=== PATIENT | male | born 1985 | race Caucasian/White ===

== ENCOUNTER → 2016-12-12 | Outpatient (CLI) | payer BC ==
--- NOTE | 2016-12-12 09:17 | CT ---
EXAMINATION TYPE: CT sinus wo con DATE OF EXAM: 12/12/2016 8:34 AM COMPARISON: NONE HISTORY: Chronic Sinusitis CT DLP: 635.1 mGycm Automated exposure control for dose reduction was used. FINDINGS: Visualized intracranial structures are unremarkable. Soft tissue imaging appears normal. There is partial septation of the left maxillary sinus. There are 2 small retention cyst or polyps me asuring 1.3 and 0.8 cm respectively. The right infundibulum is patent. The left is not clearly visual ized. There is also a small 6.9 mm retention cyst or polyp involving the sphenoid sinus anteriorly. T here is some minimal mucoperiosteal thickening involving the anterior ethmoidal sinuses on the left. The mastoid air cells are clear. No bony destructive lesion is seen. IMPRESSION: 1. MULTIPLE SMALL RETENTION CYST OR POLYPS INVOLVING THE LEFT MAXILLARY AND SPHENOID SINUSES. 2. FAILURE TO VISUALIZE THE LEFT INFUNDIBULUM.
== END | disposition home or self-care (01) ==
LOC: RADCTMAIN 08:13
PROVIDERS: ATTEND Otolaryngology
DX: J32.9 Chronic sinusitis, unspecified (principal)
CPT/HCPCS: 70486

== ENCOUNTER 2017-08-14 07:19 | Day surgery (SDC) | payer BC ==
[2017-08-11 10:58] VITALS: BMI 28.7
[~2017-08-14 07:19] MED LIST: DEXAMETHASONE SOD PHOSPHATE 10 MG/ML 1 ML VIAL IV ONE; DEXAMETHASONE SOD PHOSPHATE 4 MG/ML 1 ML VIAL IV ONE; FAMOTIDINE 20 MG/2 ML VIAL IV ONE; HYDROmorphone 0.5 MG/0.5 ML SYRINGE IVP PRN; LACTATED RINGERS 1,000 ML IV SCH; MIDAZOLAM 2 MG/2 ML VIAL IV PRN; ONDANSETRON 4 MG/2 ML VIAL IVP ONE; ceFAZolin 2 GM in SODIUM CHLORIDE 0.9% 100 ML IVPB ONE
[2017-08-14] MEDS ORDERED: OXYMETAZOLINE 0.05% NASL SPRAY 1 SPRAY BOTTLE EA NOSTRIL ONE (07:42)
[2017-08-14] MEDS ORDERED: LIDOCAINE 1% 20 ML VIAL (10MG/ML) FOR IV START INTRADERMA ONE (08:01)
[2017-08-14] MEDS ORDERED: MIDAZOLAM 2 MG/2 ML VIAL ONE (08:52)
[2017-08-14] MEDS ORDERED: DEXAMETHASONE SOD PHOS (MDV) 100 MG/10 ML VIAL ONE (08:52)
[2017-08-14] MEDS ORDERED: MORPHINE SULFATE 10 MG/ML SYRINGE ONE (08:52)
[2017-08-14] MEDS ORDERED: fentaNYL (PF) 50 MCG/ML 2 ML AMP ONE (08:52)
[2017-08-14] MEDS ORDERED: PROPOFOL 10 MG/ML 20 ML VIAL IV ONE (08:52)
[2017-08-14] MEDS ORDERED: LIDOCAINE 1% INJ 10MG/ML (20 ML MDV) ONE (08:52)
[2017-08-14] MEDS ORDERED: SUCCINYLCHOLINE CHLORIDE 100 MG/5 ML SYR IV ONE (08:52)
[2017-08-14] MEDS ORDERED: EPINEPHrine 1 MG/ML (MDV) 30 ML VIAL TOPICAL ONE (09:21)
[2017-08-14] MEDS ORDERED: FLUORESCEIN STRIPS 1 MG STRIP MISCELLANE ONE (09:21)
[2017-08-14] MEDS ORDERED: LIDOCAINE 2%-EPI 1:100,000 20 ML VIAL SQ ONE ×2 (09:22)
[2017-08-14] MEDS ORDERED: BACITRACIN 500 UNIT/GM OINT 28.4 GM TUBE TOPICAL ONE (09:32)
[2017-08-14 10:35] VITALS: TEMP 98.8
--- NOTE | 2017-08-14 10:44 | P.OP ---
Date of Procedure: 08/14/17 Preoperative Diagnosis: Chronic sinusitis Deviated nasal septum Hypertrophy of bilateral inferior nasal turbinates Postoperative Diagnosis: Same Procedure(s) Performed: Bilateral functional endoscopic sinus surgery Septoplasty Bilateral outfracture compression and submucosal resection of the inferior turbinates Anesthesia: KYLER Surgeon: Brian Nunez Estimated Blood Loss (ml): 50 Pathology: other (Sinonasal) Condition: stable Disposition: PACU Indications for Procedure: This patient presented to the office with continued sinonasal symptoms of congestion drainage facial pain and pressure etc. patient's been on aggressive antibiotics and ALLERGY medications which only helped temporarily. He's been on antibiotics nasal sprays etc. with continued problems. His drainage is often yellowish-green. CAT scan evaluation shows multiple sinus disease. He cannot breathe through his nose on his left side because of his severe left septal deviation. The nasal obstruction appears to be causing some snoring and sleep apneic issues. Operative Findings: Patient had a severe left septal deviation with large obstructive inferior turbinates and diseased mucosa the maxillary ethmoid and sphenoid sinuses bilaterally. Description of Procedure: This patient was taken to the operative room and placed in the supine position. A general inhalation anesthetic was administered to the patient by the department of anesthesia with a functioning IV line in place. The patient was monitored throughout the entire case by the department of anesthesia. The eyes were taped shut for protection. The patient was placed in a slight reverse Trendelenburg position. The patient had previously utilize Afrin nasal spray preoperatively. The nose was evaluated and the septum lateral nasal wall and inferior turbinates were injected with lidocaine 1% with epinephrine 1 100,000 bilaterally. Approximately 10 minutes were allowed wait for full vasoconstrictive effects to take place. At this point a caudal incision was made over the caudal portion of the left septum down to the mucoperichondrium. A mucoperichondrial flap was elevated on the left side and dissection was carried with use of tunnels posteriorly. We then made a crossover incision through the cartilage to the contralateral side and for the mucoperichondrial flap development was performed to the extent of visualization on the contralateral side. After the cartilage was freed with use of several crosshatching incisions and removal of some redundant strips of septal cartilage, the septum was straightened and placed back in the midline. The septum was sutured fixated to the ovarian groove. Excellent straightening occurred and the septum was visibly straight. Incision was closed with a 40 rapid Vicryl. We utilized a running nonlocking fashion for closure of the incision. A quilting stitch was used to reapproximate the septal flaps with use of a 40 rapid Vicryl. We then entered the nose with a 0 and 30 Kan romero endoscope. Previous to this we did inject the lateral nasal wall and middle turbinate and uncinate process with lidocaine 1% with epinephrine 1 100,000. Approximately 10 minutes were allowed wait for full vasoconstrictive effects to take place. With use of a microdebrider and a pediatric backbiter, we took down the uncinate process bilaterally. We then opened the maxillary sinuses bilaterally. We utilized a microdebrider for this and entered the maxillary sinuses and removed diseased tissue. This was done bilaterally. After the maxillary sinuses were opened and the diseased tissue was removed we entered the ethmoid bulla and with use of a microdebrider and up-biting boss and Christina, we followed the fovea frontalis through the basal lamella and into the posterior ethmoid air cells and did a total ethmoidectomy. We removed the anterior ethmoid air cells with use of a microdebrider and up-biting boss. After all the anterior ethmoid air cells were removed we did the same in the posterior ethmoid. A total ethmoidectomy was completed in that fashion with removal of all the anterior and posterior ethmoid air cells and diseased tissue. Once the ethmoids cells were all taken down we then entered the sphenoid sinus medially and inferiorly underneath the inferior attachment of the superior turbinate. The sphenoid sinus was opened entered and diseased tissue was removed bilaterally. This was done with a microdebrider and [place]. To summarize Maxillary ethmoid and sphenoid sinuses were open all sinuses were explored and we remove diseased tissue from the sphenoid maxillary sinuses. Ethmoid sinuses were opened totally. Merocel(in gloved finger) was inserted and minimal bleeding was encountered. We reinspected the skull base there is no signs of any orbital penetration or signs of any intracranial penetration. The sugical site was reinspected after the merocel was placed and no bleeding was seen. Intranasal splints were inserted and fixated at the end of the case. We utilized Hayes nasal splints. There will be removed and the patient returns to the office. Attention was then paid to the inferior turbinates. The bilateral inferior turbinates were hypertrophic and obstructive. We entered the anterior portion of the inferior turbinates with use of a microdebrider. We remove bone and submucosal elements with use of a microdebrider bilaterally. The inferior turbinates underwent a submucosal resection with removal of submucosal tissue and bone. We obtained a much better and normal in size for breathing. The inferior turbinates were then outfractured and compressed with a Boyes nasal elevator. Excellent airway was obtained and was symmetric bilaterally. No bleeding was encountered.
[2017-08-14] MEDS ORDERED: LABETALOL 5 MG/ML VIAL MDV IVP ONE ×2 (11:22→12:34)
[2017-08-14] MEDS ORDERED: hydrALAZINE HCL 20 MG/ML 1 ML VIAL IVP ONE ×2 (11:22→12:29)
[2017-08-14] MEDS ORDERED: MORPHINE SULFATE 4 MG/ML SYRINGE IVP ONE (11:29)
[2017-08-14] MEDS ORDERED: NITROGLYCERIN OINT 1 INCH/GM PACKET TOPICAL ONE (12:15)
[2017-08-14] MEDS ORDERED: LABETALOL SYRINGE 5 MG/ML IVP ONE ×2 (12:18→12:28)
[2017-08-14] MEDS ORDERED: amLODIPine 10 MG TAB PO STA (12:20)
[2017-08-14] MEDS ORDERED: amLODIPine 5 MG TAB PO ONE (12:32)
[2017-08-14] MEDS ORDERED: MIDAZOLAM 2 MG/2 ML VIAL IVP ONE (12:38)
[2017-08-14] MEDS ORDERED: METOPROLOL TARTRATE 5 MG/5 ML VIAL IVP ONE ×2 (12:54→12:59)
[2017-08-14 15:52] VITALS: BP 118/67; PULSE 91; RESP 18
[2017-08-14] MEDS ORDERED: LACTATED RINGERS 1,000 ML IV ONE (16:22)
== END 2017-08-14 16:33 | disposition home or self-care (01) ==
LOC: OR 07:19
PROVIDERS: ATTEND Otolaryngology
DX: J32.9 Chronic sinusitis, unspecified (principal); J34.2 Deviated nasal septum; J34.3 Hypertrophy of nasal turbinates
CPT/HCPCS: 31255; 31276; 31267; 30520; 30140; 31288; 88305; 88300; C1726; J0171; J2250; J2270 ×2; J0360; J1100 ×2; J2405; J2001; J3010; J0330; J2704